=== PATIENT | male | born 1995 | race Caucasian/White ===

== ENCOUNTER 2018-12-03 10:46 | Emergency (ER) | payer OTHER ==
[2018-12-03 11:22] VITALS: BP 110/64; PULSE 73; RESP 16
[2018-12-03 11:24] VITALS: TEMP 97.9
[2018-12-03] MEDS ORDERED: LIDOCAINE 1% INJ 10MG/ML (20 ML MDV) SQ ONE (11:36)
--- NOTE | 2018-12-03 12:11 | ED ---
Skin/Abscess/FB HPI - General Chief complaint: Skin/Abscess/Foreign Body Stated complaint: Nail in ankle-[facility] Time Seen by Provider: 12/03/18 11:17 Source: patient, RN notes reviewed Mode of arrival: wheelchair Limitations: no limitations - History of Present Illness Initial comments: This a 23-year-old male presents emergency Department chief complaint of nail in his right rodriguez. Patient states that he was chelsie states that he actually shot the nail gun into his leg. He states that is a 1 three-quarter inch to 1 inch nail. Patient states that his tetanus is up-to-date within last 5 years. He denies any paresthesias. No active bleeding. Patient states that it's just sore in that area. - Related Data Previous Rx's Medication Instructions Recorded Cephalexin [Keflex] 500 mg PO Q6HR #28 cap 12/03/18 Allergies Allergy/AdvReac Type Severity Reaction Status Date / Time No Known Allergies Allergy Verified 12/03/18 11:21 Review of Systems ROS Statement: Those systems with pertinent positive or pertinent negative responses have been documented in the HPI. ROS Other: All systems not noted in ROS Statement are negative. Past Medical History Past Medical History: No Reported History History of Any Multi-Drug Resistant Organisms: None Reported Past Surgical History: No Surgical Hx Reported Past Psychological History: No Psychological Hx Reported Smoking Status: Never smoker Past Alcohol Use History: None Reported Past Drug Use History: None Reported General Exam Limitations: no limitations General appearance: alert, in no apparent distress Respiratory exam: Present: normal lung sounds bilaterally. Absent: respiratory distress, wheezes, rales, rhonchi, stridor Cardiovascular Exam: Present: regular rate, normal rhythm, normal heart sounds. Absent: systolic murmur, diastolic murmur, rubs, gallop, clicks Extremities exam: Present: other (Right lower leg anterior surface there is what appears to be a chelsie nail to the skin, pedal pulses are equal bilaterally, patient's full range of motion of all digits well neurovascular exam) Course Vital Signs 12/03/18 11:18 Temperature 97.9 F Pulse Rate 73 Respiratory 16 Rate Blood Pressure 110/64 O2 Sat by Pulse 98 Oximetry Procedures - Procedures Initial comment: Soft tissue foreign body removal: 1% lidocaine without epinephrine were used to anesthetize the area 5 mL, pliers were used to remove the foreign body with no difficulty minimal bleeding area was irrigated. Medical Decision Making - Medical Decision Making 23-year-old male presented for soft tissue foreign bodies patient had a nail in his right leg. This was removed without difficulty has neurovascular intact exam is within normals after nail removal pulses are equal, full range of motion full-strength I did recommend repeat x-ray patient declines. Patient we discharged on antibiotics we discussed wound care and patient will be provided orthopedics. Disposition Clinical Impression: Soft tissues foreign body Disposition: HOME SELF-CARE Condition: Stable Instructions (If sedation given, give patient instructions): Soft Tissue Foreign Body (ED) Additional Instructions: Please return to the Emergency Department if symptoms worsen or any other concerns. Prescriptions: Cephalexin [Keflex] 500 mg PO Q6HR #28 cap Is patient prescribed a controlled substance at d/c from ED?: No Referrals: Arnel Castano MD [Medical Doctor] - 1-2 days Time of Disposition: 12:11
--- NOTE | 2018-12-03 12:16 | XR ---
EXAMINATION TYPE: XR tibia fibula RT DATE OF EXAM: 12/03/2018 COMPARISON: NONE HISTORY: Foreign body TECHNIQUE: Two views are submitted. FINDINGS: The osseous structures are intact. The joint spaces are preserved. There is a metallic screw overly ing the distal anterior soft tissues adjacent to the anterior margin of the tibia IMPRESSION: 1. Findings are positive for foreign body as discussed above.
== END 2018-12-03 12:23 | disposition home or self-care (01) ==
LOC: EC 10:46
DX: S90.551A Superficial foreign body, right ankle, initial encounter (principal); W45.0XXA Nail entering through skin, initial encounter; Y93.89 Activity, other specified
CPT/HCPCS: 99283; 73590; J2001